=== PATIENT | female | born 1960 | race Two or more races ===

== ENCOUNTER 2016-10-01 22:42 | Emergency (ER) | payer OTHER ==
[~2016-10-01] VITALS: Ht 160 cm; Wt 68.0 kg
[2016-10-01 23:10] VITALS: BP 109/58
--- NOTE | 2016-10-01 23:20 | NUR ---
PT PRESENTED TO THE ER WITH A C/O LT RIB PAIN S/P FALLING AND HITTING HER RIBS ON THE TRUCK WHEN SHE FELL. PT AMBULATED TO BED #3 WITH A STEADY GAIT. PT IS C/O LT SIDED RIB PAIN WITH INSPIRATION, LIFTING HANDS ABOVE HER HEAD, LYING FLAT AND MOVING. PT CHANGED INTO A GOWN AND IS AWAITING EVAL. RESP EVEN AND UNLABORED.
--- NOTE | 2016-10-01 23:30 | NUR ---
DR. IRELAND IS AT THE BEDSIDE.
--- NOTE | 2016-10-01 23:38 | NUR ---
XRAY IN PROGRESS AT THE BEDSIDE.
--- NOTE | 2016-10-02 00:18 | NUR ---
CALLED RT FOR INSENTIVE SPIROMETER.
--- NOTE | 2016-10-02 00:24 | NUR ---
RT IS AT THE BEDSIDE WITH INCENTIVE SPIROMETER.
--- NOTE | 2016-10-02 00:34 | NUR ---
Patient discharged to home in stable condition. Written and verbal after care instructions given. Patient verbalizes understanding of instruction AND RX. PT AMBULATED OUT WITH A STEADY GAIT. VSS.
== END 2016-10-02 00:38 | disposition home or self-care (01) ==
LOC: ER 22:51
DX: S22.32XA Fracture of one rib, left side, initial encounter for closed fracture (principal); S27.9XXA Injury of unspecified intrathoracic organ, initial encounter; W22.8XXA Striking against or struck by other objects, initial encounter; I10 Essential (primary) hypertension; Y92.89 Other specified places as the place of occurrence of the external cause; Y93.89 Activity, other specified; Y99.8 Other external cause status
CPT/HCPCS: 71010-TC; 94799-TC; A4606; Z7610

== ENCOUNTER 2017-06-17 16:15 | Emergency (ER) | payer OTHER ==
[~2017-06-17] VITALS: Ht 157.5 cm; Wt 68.0 kg
[2017-06-17 16:30] VITALS: BP 126/70
[2017-06-17] MEDS ORDERED: KETOROLAC TROMETHAMINE INJ 60 MG/2 ML VIAL IM ONE (17:30)
[2017-06-17] MEDS ORDERED: KETOROLAC TROMETHAMINE INJ 30 MG/ML VIAL ONE (17:38)
== END 2017-06-17 17:59 | disposition home or self-care (01) ==
LOC: ER 16:17
DX: S46.912A Strain of unspecified muscle, fascia and tendon at shoulder and upper arm level, left arm, initial encounter (principal); S46.911A Strain of unspecified muscle, fascia and tendon at shoulder and upper arm level, right arm, initial encounter; S29.012A Strain of muscle and tendon of back wall of thorax, initial encounter; I10 Essential (primary) hypertension; Z90.710 Acquired absence of both cervix and uterus; W01.0XXA Fall on same level from slipping, tripping and stumbling without subsequent striking against object, initial encounter; Y93.89 Activity, other specified; Y92.89 Other specified places as the place of occurrence of the external cause; Y99.8 Other external cause status
CPT/HCPCS: 96372; 99283; A4606; J1885; Z7610

== ENCOUNTER 2017-07-15 18:51 | Emergency (ER) | payer OTHER ==
[~2017-07-15] VITALS: Ht 157.5 cm; Wt 65.8 kg
[2017-07-15 18:51] VITALS: BP 152/72
== END 2017-07-15 21:07 | disposition home or self-care (01) ==
LOC: ER 18:53
DX: B34.9 Viral infection, unspecified (principal); R05 Cough; I10 Essential (primary) hypertension; Z90.710 Acquired absence of both cervix and uterus
CPT/HCPCS: 99282; A4606; Z7610

== ENCOUNTER 2018-01-19 20:06 | Emergency (ER) | payer OTHER ==
[~2018-01-19] VITALS: Ht 160 cm; Wt 67.1 kg
--- NOTE | 2018-01-19 20:20 | NUR ---
Patient bibself from home c/o feeling very bloated with discomfort for the past 3 days. Patient Denies any abd pain, denies n/v/d, denies dysuria. Pt is afebrile. No s/s of acute distress or sob noted. Sitting comfortably in bed, being seen by the MD at bedside. Will continue to monitor pt.
--- NOTE | 2018-01-19 21:05 | NUR ---
ordered meds given.
[2018-01-19] MEDS ORDERED: LIDOCAINE VISCOUS 2% UD 15 ML UDC ONE (21:06)
[2018-01-19] MEDS ORDERED: MAG HYDROX/AL HYDROX/SIMETH 30 ML UDC ONE (21:06)
[2018-01-19] MEDS: MAG HYDROX/AL HYDROX/SIMETH 30 ML UDC PO ONE (21:07)
[2018-01-19] MEDS: LIDOCAINE VISCOUS 2% UD 15 ML UDC MM ONE (21:07)
[2018-01-19 21:25] LABS: BASOPHILS % (AUTO) 0.7 % (0.0-2.0); EOSINOPHILS % (AUTO) 2.5 % (0.0-6.0); HEMATOCRIT 39 % (33-45); LYMPHOCYTES # (AUTO) 2.3 /CMM (0.8-4.8); LYMPHOCYTES % (AUTO) 32.9 % (20.0-44.0); MEAN CORPUSCULAR HEMOGLOBIN 30 PG (26.0-33.0); MEAN CORPUSCULAR HGB CONC 33 g/dl (31.0-36.0); MEAN CORPUSCULAR VOLUME 92 fL (82-100); MONOCYTES # (AUTO) 0.3 /CMM (0.1-1.30); MONOCYTES % (AUTO) 4.6 % (2.0-12.0); NEUTROPHILS # (AUTO) 4.3 /CMM (1.8-8.9); NEUTROPHILS % (AUTO) 59.3 % (43.0-81.0); PLATELET COUNT (AUTO) 360 /CMM (150-450); RDW COEFFICIENT OF VARIATION 12.6 (11.5-15.0); RED BLOOD CELL COUNT(AUTO) 4.27 MIL/uL (4.0-5.2); WHITE BLOOD COUNT (AUTO) 7.1 K/uL (4.3-11.0)
[2018-01-19 21:38] LABS: ALBUMIN 4.1 g/dL (3.4-5.0); BILIRUBIN,TOTAL 0.2 mg/dL (0.2-1.0); CALCIUM, SERUM 9.1 mg/dL (8.5-10.1); CREATININE 1.2 mg/dL (0.6-1.3); POTASSIUM 3.9 mmol/L (3.5-5.1); TOTAL PROTEIN, SERUM 7.9 g/dL (6.4-8.2)
--- NOTE | 2018-01-19 22:05 | NUR ---
Patient discharged to home in stable condition. Written and verbal after care instructions given. Patient verbalizes understanding of instruction. Patient left walking on foot with steady gait. No s/s of acute distress or sob noted. VS stable.
[2018-01-19 22:06] VITALS: BP 126/74
== END 2018-01-19 22:07 | disposition home or self-care (01) ==
LOC: EDBD 20:08 → ER 20:08
DX: R74.8 Abnormal levels of other serum enzymes (principal); R10.13 Epigastric pain; R14.0 Abdominal distension (gaseous); R79.89 Other specified abnormal findings of blood chemistry; I10 Essential (primary) hypertension; Z90.710 Acquired absence of both cervix and uterus
CPT/HCPCS: 36415; 80048-TC; 80076-TC; 83690-TC; 85025-TC; A4606; Z7610

== ENCOUNTER 2018-07-04 14:54 | Emergency (ER) | payer MEDICAID, OTHER ==
[~2018-07-04] VITALS: Ht 157.5 cm; Wt 68.5 kg
[2018-07-04 14:54] VITALS: BP 148/91
== END 2018-07-04 15:47 | disposition home or self-care (01) ==
LOC: ER 14:58
DX: J06.9 Acute upper respiratory infection, unspecified (principal); I10 Essential (primary) hypertension; Z90.710 Acquired absence of both cervix and uterus; Z87.19 Personal history of other diseases of the digestive system
CPT/HCPCS: 99282; A4606

== ENCOUNTER 2022-01-05 17:38 | Emergency (ER) | payer OTHER ==
[~2022-01-05] VITALS: Ht 157.5 cm; Wt 59.9 kg
--- NOTE | 2022-01-05 18:10 | NUR ---
RECEIVED PT 61 YRS FEMALE CAME BY PRAALVERTO C/O N/V AND EPGASTIC PAIN FOR 4 DAYS
--- NOTE | 2022-01-05 18:20 | NUR ---
BLOOD DROW BY LAB TACH
[2022-01-05] MEDS ORDERED: MORPHINE SULFATE INJ 2 MG/ML DISP.SYRIN IV ONE (18:30)
[2022-01-05] MEDS ORDERED: ONDANSETRON HCL/PF - ER 4 MG/2 ML VIAL IV ONE ×2 (18:30→20:30)
[2022-01-05] MEDS ORDERED: IV LR 1000 ML 1,000 ML IV ONE ×2 (18:30→20:30)
--- NOTE | 2022-01-05 18:40 | NUR ---
INSERTED ANGO CATH # 20 ON RT AC INFUSED AND PATENT
[2022-01-05] MEDS ORDERED: ONDANSETRON HCL/PF 4 MG/2 ML VIAL ONE ×2 (18:41→20:20)
[2022-01-05] MEDS ORDERED: MORPHINE SULFATE INJ 4 MG/ML DISP.SYRIN ONE ×2 (18:42→23:54)
--- NOTE | 2022-01-05 19:20 | NUR ---
JEISON HENDRICKSON DONE AND SENT TO LAB
[2022-01-05 19:24] LABS: ALBUMIN 4.3 g/dL (3.4-5.0); BILIRUBIN,DIRECT 0.2 mg/dL (0.0-0.2); BILIRUBIN,TOTAL 0.6 mg/dL (0.2-1.0); CALCIUM, SERUM 9.3 mg/dL (8.5-10.1); CREATININE 2.1 mg/dL (0.6-1.3); TOTAL PROTEIN, SERUM 8.4 g/dL (6.4-8.2)
--- NOTE | 2022-01-05 19:36 | NUR ---
URINE COLLECTED AND SENT TO LAB
--- NOTE | 2022-01-05 19:39 | NUR ---
HAND OFF TO BANDAR LIMA
[2022-01-05 19:51] LABS: HEMATOCRIT 38 % (33-45); HEMOGLOBIN 12.1 g/dL (11.5-14.8); LYMPHOCYTES # (AUTO) 1.4 K/uL (0.8-4.8); LYMPHOCYTES % (AUTO) 12.5 % (20.0-44.0); MEAN CORPUSCULAR HGB CONC 32 g/dl (31.0-36.0); MEAN CORPUSCULAR VOLUME 83 fL (82-100); MONOCYTES # (AUTO) 0.5 K/uL (0.1-1.30); NEUTROPHILS # (AUTO) 9.7 K/uL (1.8-8.9); NEUTROPHILS % (AUTO) 83.5 % (43.0-81.0); PLATELET COUNT (AUTO) 424 K/uL (150-450); RED BLOOD CELL COUNT(AUTO) 4.51 MIL/uL (4.0-5.2); WHITE BLOOD COUNT (AUTO) 11.6 K/uL (4.3-11.0)
[2022-01-05 19:56] LABS: POTASSIUM 2.7 mmol/L (3.5-5.1)
[2022-01-05] MEDS ORDERED: POTASSIUM CHLORIDE 20 MEQ TAB.PRT.SR PO ONE ×2 (20:30→21:16)
[2022-01-05] MEDS ORDERED: METOCLOPRAMIDE HCL 10 MG/2 ML VIAL ONE (20:43)
[2022-01-05] MEDS ORDERED: POTASSIUM CL. PREMIX PERIPHER. 50 ML ONE (20:43)
[2022-01-05] MEDS ORDERED: POTASSIUM CHLORIDE 10 MEQ/50 ML PREMIXED IVPB FOR PERIPHERAL LINE IV ONE (21:00)
[2022-01-05] MEDS ORDERED: METOCLOPRAMIDE HCL 10 MG/2 ML VIAL IV ONE (21:00)
[2022-01-05 21:24] LABS: BILIRUBIN,URINE SMALL (NEGATIVE); COLOR,URINE YELLOW (YELLOW); LEUKOCYTE ESTERASE ,URINE NEGATIVE (NEGATIVE); NITRITE, URINE NEGATIVE (NEGATIVE); PROTEIN,URINE 100 mg/dl (NEGATIVE); UGLUCOSE NEGATIVE (NEGATIVE); UROBILINOGEN,URINE 0.2 EU/dL (0.2)
[2022-01-05 21:39] LABS: BACTERIA,URINE None seen /HPF (None Seen); WBC,URINE 0-2 /HPF (0-3)
--- NOTE | 2022-01-05 23:28 | NUR ---
CONTACTED [facility] WITH [facility] [phone] LEFT A MSG TO CALL BACK
--- NOTE | 2022-01-05 23:44 | NUR ---
BACK FROM CT
--- NOTE | 2022-01-05 23:44 | NUR ---
PT RETURNED TO ER BED [address]
[2022-01-06] MEDS ORDERED: IV LR 1000 ML 1,000 ML IV ONE
[2022-01-06] MEDS ORDERED: MORPHINE SULFATE INJ 4 MG/ML DISP.SYRIN IV ONE (00:30)
[2022-01-06] MEDS ORDERED: LABETALOL HCL IV 100MG VIAL IV ONE (00:30)
[2022-01-06] MEDS ORDERED: LABETALOL HCL IV 100MG VIAL ONE (00:39)
--- NOTE | 2022-01-06 02:43 | NUR ---
AUTH# FOR TRANSPORT [id number]
--- NOTE | 2022-01-06 02:49 | NUR ---
PATIENT ACCEPTED TO [facility] ROOM [id number] NUMBER FOR REPORT IS [phone].
--- NOTE | 2022-01-06 03:00 | NUR ---
[facility] WILL BE HERE IN UNDER 10 MINS TO TRANSPORT PT.
--- NOTE | 2022-01-06 03:04 | NUR ---
report given to alli vallejo
[2022-01-06 03:32] VITALS: BP 189/94
--- NOTE | 2022-01-06 03:32 | NUR ---
PATIENT BEING TRANSFERRED TO [facility] VIA AMBULANCE
== END 2022-01-06 03:32 | disposition short-term general hospital (02) ==
LOC: EDBD 17:40 → ER 17:40
DX: R10.84 Generalized abdominal pain (principal); N17.9 Acute kidney failure, unspecified; R11.2 Nausea with vomiting, unspecified; E87.6 Hypokalemia; Z20.822 Contact with and (suspected) exposure to COVID-19; I10 Essential (primary) hypertension; Z90.49 Acquired absence of other specified parts of digestive tract; Z90.710 Acquired absence of both cervix and uterus
CPT/HCPCS: 99285; 74176; 96365; 96375 ×2; 71045; 96361 ×2; 87426; 96376 ×2; 85025; 80048; 83690; 80076; 81001; 36415; J2270 ×2; J2765; J2405 ×4; J7120 ×6; J3480; C9803; J3490